=== PATIENT | male | born 1965 | race Caucasian/White ===

== ENCOUNTER → 2020-09-07 07:56 | Outpatient (CLI) | payer BC, SELFPAY ==
--- NOTE | ~2020-09-07 | US_ITS ---
EXAMINATION: US right upper quadrant EXAM DATE: 09/07/2020 08:16 INDICATION: Elevated liver enzymes. Elevated liver enzymes. TECHNIQUE: Multiple grayscale and Doppler images of the abdomen right upper quadrant were obtained (b y a technologist who performed the scan) and subsequently reviewed. There is no prior study for oscar suárez. FINDINGS: The pancreatic head and body are normal in appearance. The pancreatic tail is not visualized. Mildl y echogenic liver parenchyma, hepatic steatosis. There are no focal liver lesions identified. Ther e is no evidence of intrahepatic biliary duct dilation. Portal venous flow was seen in the hepatoped al, normal direction and has normal Doppler waveform. No right-sided hydronephrosis. Common bile duct measures 4 mm, which is normal. The gallbladder wall is normal in thickness, with ex pected amount of distention. No sonographic evidence of pericholecystic fluid. There is no cholelit hiases. Technologist performing exam reports patient did not demonstrate sonographic Mcgee's sign. Please note that this sign is less reliable in patients who have received pain medication. IMPRESSION: 1. Hepatic steatosis. Reviewed, dictated and finalized at location B. DATA SOLUTION ARCHITECT IMPRESSION: 1. Hepatic steatosis.
== END ==
PROVIDERS: PCP Student in an Organized Health Care Education/Training Program; Visit Provider Student in an Organized Health Care Education/Training Program
DX: R74.8 Abnormal levels of other serum enzymes (principal); K76.0 Fatty (change of) liver, not elsewhere classified
CPT/HCPCS: 76705

== ENCOUNTER 2021-10-18 08:57 | Outpatient (CLI) | payer BC, SELFPAY ==
--- NOTE | ~2021-10-18 | CT_ITS ---
EXAMINATION: CT abdomen wo/w con DATE: 10/18/2021 09:26 INDICATION: Abnormal liver function tests. TECHNIQUE: Computed tomography (CT) of the abdomen was performed without and with 100 mL Omnipaque 35 0 intravenous contrast. Automated exposure control and iterative reconstruction technique were employ ed. The dose-length product was 2356.37 mGy-cm. COMPARISON: Abdomen ultrasound 09/07/2020 FINDINGS: The visualized portions of the lung bases demonstrate mild atelectasis. No pleural effusion . The heart size is normal. No pericardial effusion. There is diffuse hepatic steatosis. The gallblad christine, spleen, pancreas, and adrenal glands are normal. There are cysts in the kidneys measuring up to 2.3 cm on the right. There are no dilated loops of bowel. There are no pathologically enlarged lymph nodes. There is no free intraperitoneal fluid. There is a periumbilical ventral hernia containing fat . There is moderate lumbar spondylosis and mild thoracic spondylosis. IMPRESSION: 1. Diffuse hepatic steatosis. Reviewed, dictated and finalized at location B.
[2021-10-18 09:16] LABS: Estimated Glomerular Filt Rate > 60
== END 2021-10-18 08:58 ==
PROVIDERS: Visit Provider Student in an Organized Health Care Education/Training Program
DX: R74.8 Abnormal levels of other serum enzymes (principal); R17 Unspecified jaundice
CPT/HCPCS: 74170; Q9967

== ENCOUNTER 2022-04-05 10:27 | Outpatient (CLI) | payer BC, SELFPAY ==
--- NOTE | ~2022-04-05 | US_ITS ---
US right upper quadrant INDICATION: Fatty liver disease. PROCEDURE: Realtime right upper abdominal ultrasound. COMPARISON: Ultrasound dated 09/07/2020 FINDINGS: The pancreas is not well visualized due to bowel gas. Liver echotexture is diffusely incre ased, consistent with fatty infiltration. There is normal directional flow in the portal vein. The gallbladder is normal without stones, gallbladder wall thickening or pericholecystic fluid. Comm on bile duct measures 4 mm. No sonographic Mcgee's sign. There is a 2.1 cm right renal cyst. IMPRESSION: 1: Hepatic steatosis. 2: Right renal cyst measuring 2.1 cm. Reviewed, dictated and finalized at location A.
== END 2022-04-05 10:28 ==
PROVIDERS: PCP Student in an Organized Health Care Education/Training Program
DX: K76.0 Fatty (change of) liver, not elsewhere classified (principal); N28.1 Cyst of kidney, acquired
CPT/HCPCS: 76705

== ENCOUNTER 2022-05-09 08:26 | Outpatient (CLI) | payer BC, SELFPAY ==
--- NOTE | ~2022-05-09 | CT_ITS ---
EXAMINATION: CT abdomen pelvis w con DATE: 05/09/2022 09:50 INDICATION: Cecal mass. TECHNIQUE: Computed tomography (CT) of the abdomen and pelvis was performed with 100 mL Omnipaque 350 intravenous contrast. Automated exposure control and iterative reconstruction technique were employe d. The dose-length product was 1131.52 mGy-cm. COMPARISON: CT abdomen 10/18/2021 FINDINGS: The visualized portions of the lung bases demonstrate mild dependent atelectasis bilaterall y. No pleural effusion. The heart size is normal. No pericardial effusion. The liver, gallbladder, sp jerry, pancreas, and adrenal glands are normal. There are cysts in the kidneys measuring up to 2.3 cm on the right. There is prominent fat in the inguinal canals that may be hernias. The appendix is norm al. There are no dilated loops of bowel. There are no pathologically enlarged lymph nodes. There is n o free intraperitoneal fluid. There is mild thoracic spondylosis and moderate lumbar spondylosis. IMPRESSION: 1. No evidence of malignancy. Reviewed, dictated and finalized at location A. [employer]
[2022-05-09 09:41] LABS: Estimated Glomerular Filt Rate > 60
== END 2022-05-09 08:27 ==
PROVIDERS: PCP Student in an Organized Health Care Education/Training Program; Visit Provider Surgery
DX: R19.09 Other intra-abdominal and pelvic swelling, mass and lump (principal); Z68.31 Body mass index [BMI] 31.0-31.9, adult
CPT/HCPCS: 74177; Q9967